=== PATIENT | female | born 1985 | race Hispanic/Latino ===

== ENCOUNTER → 2016-09-07 | Day surgery (SDC) | payer OTHER ==
[~2016-09-07] VITALS: Ht 157.5 cm; Wt 71.7 kg
--- NOTE | 2016-09-11 08:03 | Operative Report ---
Operative/Inv Procedure Report Surgery Date: 09/07/16 Name of Procedure: Anterior repair no mesh of recurrent ventral hernia with bilateral rectus muscle fascial advancement flaps Pre-Operative Diagnosis: Recurrent ventral hernia Post-Operative Diagnosis: Same Estimated Blood Loss: scant Surgeon/Assistant Office Manager: RAGHU READ,PAIGE BRINK Anesthesia: general endotracheal tube Operative/Procedure Note Note: Patient was placed on the OR table in the supine position. After successful induction of general anesthesia, another timeout was done, IV antibiotics given, the abdomen was clipped prepped and draped in the usual sterile fashion. The hernia was essentially periumbilical and epigastric, measuring about 15 cm long, with a significant diastases of the rectus muscle, we had reviewed the preoperative CT scan. This area in the midline vertically was infiltrated local anesthetic and then the incision was made with a 10 blade. Note she had a large piece of mesh already in there placed elsewhere laparoscopically. The incision was deepened with cautery through the subcutaneous fat and the herniated fat and omentum and overlying sac were dissected circumferentially off the fascia, defining the true edges of the defect. We could see some of the metal coils placed during the prior repair, there was no adherent bowel, whenever possible to try to stay on top of the existing mesh. To do this the thickened attenuated sac was mostly excised and the adherent omentum to the anterior peritoneal surface was also along with some adhesions between the sac and the peritoneum. The rectus muscle itself was intact and well-developed, but at this point could not be pulled to the midline without significant tension. Then we would gently pull remnants of fascia and suture together bilaterally wherever possible without tension in multiple places with short runs of 2-0 Maxon, interrupted 0 Vicryl in interrupted 2-0 Prolene sutures, trying to stay symmetric, some areas especially on the ends we were able to close all the way to the midline. Then to create the advancement flaps I deliberately cut into the rectus sheath anteriorly about an inch off the medial edges all the way around and then you would mobilize that fascia to the midline and close it again with a combination of Maxon Prolene and Vicryl as mentioned above, the rectus muscle was advanced bilaterally to the midline, each side moving 3-4 cm each, in so doing some of the underlying fascial remnants could be closed as well, completely. Then this was covered by sewing together remnants of excised hernia sac and attenuated fascia. The subcutaneous layer was also reapproximated via the superficial fascia. The skin was reapproximated with liliane having brought it together and a few areas with interrupted 3-0 Vicryl sutures subdermally. This was covered with gauze and tape. EBL minimal lap and sponge counts correct wound expectancy clean IV fluids crystalloid complications none patient tolerated the procedure well was awakened extubated returned to the recovery room in satisfactory condition.
== END ==
LOC: STS 01:49
DX: K43.2 Incisional hernia without obstruction or gangrene (principal); F17.200 Nicotine dependence, unspecified, uncomplicated
CPT/HCPCS: 81025; J0131; J0690; J2250